=== PATIENT | female | born 1995 | race African-American/Black ===

== ENCOUNTER 2024-10-22 18:02 | Emergency (ER) | payer OTHER ==
[~2024-10-22] VITALS: Ht 162.6 cm; Wt 78.0 kg
[2024-10-22] MEDS ORDERED: LIDOCAINE 1% INJ 50 ML MDV IJ ONE (19:00)
[2024-10-22] MEDS ORDERED: CEFTRIAXONE 1 G VIAL ONE (19:00)
[2024-10-22] MEDS: CEFTRIAXONE 1 G VIAL IM ONE (19:10)
[2024-10-22] MEDS ORDERED: DOXY-226 PO (19:50)
[2024-10-22 20:04] VITALS: BP 126/73; TEMP 98.8; O2SAT 99
== END 2024-10-22 20:05 | disposition home or self-care (01) ==
LOC: ER 18:06
DX: A64 Unspecified sexually transmitted disease (principal); F12.90 Cannabis use, unspecified, uncomplicated; R59.1 Generalized enlarged lymph nodes
CPT/HCPCS: 99283; 71045; 96372; J3490; J0696